=== PATIENT | female | born 1945 | race Caucasian/White ===

== ENCOUNTER 2016-11-07 19:31 | Emergency (ER) | payer MEDICARE ==
[2016-11-07 20:29] LABS: BASOPHIL 0.2 % (0-2); HCT 31.2 % (37.0-47.0); HGB 9.5 g/dl (12.5-16.0); LYMPHOCYTE 17.8 % (15-48); MCH 29.9 pg (25.0-31.0); MCHC 30.4 g/dL (32.0-36.0); MCV 98.1 fL (78.0-100.0); MONOCYTE 9.5 % (0-12); MPV 10.2 fL (6.0-9.5); NEUTROPHIL 70.5 % (41-80); PLT 269 K/uL (150-400); RBC 3.18 M/uL (4.20-5.40); RDW 15.1 % (11.5-14.0)
[2016-11-07 20:43] LABS: ALBUMIN 2.9 g/dL (3.4-4.8); BILIRUBIN - TOTAL 0.2 mg/dL (0.1-1.0); CREATININE 0.7 mg/dL (0.5-1.0); GLOBULIN (CALCULATION) 3.9 g/dL (2.2-4.2); POTASSIUM 4.4 mmol/L (3.5-5.1); TOTAL PROTEIN 6.8 g/dL (6.4-8.3)
[2016-11-07 20:52] LABS: INR 1.2 (0.9-1.2); PROTHROMBIN TIME 14.8 SECONDS (11.7-14.0); PTT 37.6 SECONDS (23.2-31.4)
[2016-11-07 21:47] LABS: BILIRUBIN NEGATIVE (NEGATIVE); BLOOD 3+ Ery/uL (NEGATIVE); CLARITY CLOUDY (CLEAR); COLOR YELLOW (YELLOW); GLUCOSE (U) NORMAL (NORMAL); KETONE (U) NEGATIVE (NEGATIVE); LEUKOCYTES 2+ Leu/uL (NEGATIVE); NITRITE NEGATIVE (NEGATIVE); PROTEIN 1+ mg/dL (NEGATIVE); SPECIFIC GRAVITY 1.025 (1.001-1.030); UROBILINOGEN 0.2 mg/dL (0.2-1.0); pH 5.5 (5.0-9.0)
[2016-11-07 21:52] LABS: BACTERIA 3+; SQUAMOUS EPITHELIAL CELLS RARE; URINARY WBC 20-50
[2016-12-05] MEDS ORDERED: SYNTHROID88 MCG PEG (14:36)
[2016-12-05] MEDS ORDERED: PROAMATINE5 MG PEG (14:36)
[2016-12-05] MEDS ORDERED: PREVACID30 M1 PEG (14:36)
[2016-12-05] MEDS ORDERED: REGLAN5 MG PEG (14:36)
[2016-12-05] MEDS ORDERED: LIPITOR40 M1 PEG (14:37)
[2016-12-05] MEDS ORDERED: ELIQUIS5 MG PEG (14:37)
[2016-12-05] MEDS ORDERED: DIGITEK125 MCG PEG (14:37)
[2016-12-05] MEDS ORDERED: MIRALAX17 GM PEG (14:37)
[2016-12-05] MEDS ORDERED: LASIX20 MG PEG (14:38)
[2016-12-05] MEDS ORDERED: TOPAMAX100 MG PEG (14:38)
[2016-12-05] MEDS ORDERED: LYRICA75 MG PEG (14:38)
[2016-12-05] MEDS ORDERED: PREDNISONE 10MG10 MG PEG (14:38)
[2016-12-05] MEDS ORDERED: CARAFATE1 GM PEG (14:38)
[2016-12-05] MEDS ORDERED: LOPRESSOR25 MG PEG (14:39)
[2016-12-05] MEDS ORDERED: PERCOCET 5/3251 TAB PEG (14:39)
[2016-12-05] MEDS ORDERED: FLORASTOR250 MG PEG (14:39)
== END 2016-11-08 03:18 | disposition other institution (70) ==
LOC: FER 19:31
PROVIDERS: Emergency Medicine
DX: J18.9 Pneumonia, unspecified organism (principal); I50.1 Left ventricular failure, unspecified; I21.4 Non-ST elevation (NSTEMI) myocardial infarction; R82.90 Unspecified abnormal findings in urine; I25.10 Atherosclerotic heart disease of native coronary artery without angina pectoris; I48.91 Unspecified atrial fibrillation; J44.9 Chronic obstructive pulmonary disease, unspecified; Z86.73 Personal history of transient ischemic attack (TIA), and cerebral infarction without residual deficits; Z88.0 Allergy status to penicillin; Z88.1 Allergy status to other antibiotic agents; Z88.8 Allergy status to other drugs, medicaments and biological substances; Z79.01 Long term (current) use of anticoagulants; Z93.0 Tracheostomy status; Z93.1 Gastrostomy status; Z66 Do not resuscitate
CPT/HCPCS: 36415; 36600; 71020; 80053; 81001; 82150; 82803; 83605; 83880; 84484; 85025; 85610; 85730; 87040; 87076; 87088; 87186; 87804; 87899; 93005; 94640; 96372; J1250; J1885; J2543

== ENCOUNTER → 2017-01-06 | Day surgery (SDC) | payer MEDICARE ==
[~2017-01-06] VITALS: Ht 165.1 cm; Wt 71.3 kg
[~2017-01-06] MED LIST: CARAFATE1 GM PEG; DIGITEK125 MCG PEG; ELIQUIS5 MG PEG; FLORASTOR250 MG PEG; LASIX20 MG PEG; LIPITOR40 M1 PEG; LOPRESSOR25 MG PEG; LYRICA75 MG PEG; MIRALAX17 GM PEG; PERCOCET 5/3251 TAB PEG; PREDNISONE 10MG10 MG PEG; PREVACID30 M1 PEG; PROAMATINE5 MG PEG; REGLAN5 MG PEG; SYNTHROID88 MCG PEG; TOPAMAX100 MG PEG
== END | disposition home or self-care (01) ==
LOC: FAS 10:00
DX: R63.3 Feeding difficulties (principal); E03.9 Hypothyroidism, unspecified; G47.30 Sleep apnea, unspecified; J44.9 Chronic obstructive pulmonary disease, unspecified; I48.91 Unspecified atrial fibrillation; I50.9 Heart failure, unspecified; Z88.0 Allergy status to penicillin; Z88.1 Allergy status to other antibiotic agents; Z88.8 Allergy status to other drugs, medicaments and biological substances; Z79.01 Long term (current) use of anticoagulants; Z79.899 Other long term (current) drug therapy
CPT/HCPCS: J1885; J2704; J3010

== ENCOUNTER 2017-01-11 03:30 | Emergency (ER) | payer MEDICARE ==
[2017-01-11 03:53] LABS: BASOPHIL 0.2 % (0-2); EOSINOPHIL 2.2 % (0-7); HCT 33.4 % (37.0-47.0); HGB 9.9 g/dl (12.5-16.0); LYMPHOCYTE 46.2 % (15-48); MCH 28.1 pg (25.0-31.0); MCHC 29.6 g/dL (32.0-36.0); MCV 94.9 fL (78.0-100.0); MPV 10.7 fL (6.0-9.5); NEUTROPHIL 44.4 % (41-80); PLT 334 K/uL (150-400); RBC 3.52 M/uL (4.20-5.40); RDW 14.1 % (11.5-14.0); WBC 20.9 K/uL (4.0-10.5)
[2017-01-11 04:01] LABS: INR 1.28 (0.9-1.2); PROTHROMBIN TIME 15.5 SECONDS (11.7-14.0); PTT 34.3 SECONDS (23.2-31.4)
[2017-01-11 04:03] LABS: D-DIMER 0.45 ug/mLFEU (0.00-0.41)
[2017-01-11 04:09] LABS: LACTIC ACID 2.1 mmol/L (0.5-2.2)
[2017-01-11 04:35] LABS: BILIRUBIN NEGATIVE (NEGATIVE); BLOOD 2+ Ery/uL (NEGATIVE); COLOR YELLOW (YELLOW); GLUCOSE (U) NORMAL (NORMAL); KETONE (U) NEGATIVE (NEGATIVE); LEUKOCYTES 2+ Leu/uL (NEGATIVE); NITRITE POSITIVE (NEGATIVE); PROTEIN TRACE (LOW) mg/dL (NEGATIVE); UROBILINOGEN 0.2 mg/dL (0.2-1.0); pH 6.5 (5.0-9.0)
[2017-01-11 04:36] LABS: CLARITY CLOUDY (CLEAR)
[2017-01-11 04:51] LABS: ALBUMIN 3.2 g/dL (3.4-4.8); BILIRUBIN - TOTAL 0.2 mg/dL (0.1-1.0); CREATININE 0.8 mg/dL (0.5-1.0); GLOBULIN (CALCULATION) 3.6 g/dL (2.2-4.2); POTASSIUM 3.8 mmol/L (3.5-5.1); TOTAL PROTEIN 6.8 g/dL (6.4-8.3)
[2017-01-11 04:52] LABS: CKMB 2.93 ng/mL (0.97-4.94); TROPONIN T 0.099 ng/mL
[2017-01-11 06:22] LABS: BAND 3 % (0-10); EOSINOPHIL(M) 3 % (0-7); LYMPHOCYTE(M) 40 % (15-48); MONOCYTE(M) 5 % (0-12); NEUTROPHILS(M) 45 % (41-80); TOTAL CELL COUNT 100; VARIANT LYMPHOCYTE 4
[2017-01-11 06:23] LABS: PLATELET ESTIMATE NORMAL; PLATELET MORPHOLOGY NORMAL
== END 2017-01-11 09:18 | disposition other institution (70) ==
LOC: FER 03:30
PROVIDERS: Emergency Medicine Emergency Medical Services
DX: J18.9 Pneumonia, unspecified organism (principal); J96.20 Acute and chronic respiratory failure, unspecified whether with hypoxia or hypercapnia; I50.9 Heart failure, unspecified; I48.91 Unspecified atrial fibrillation; J44.9 Chronic obstructive pulmonary disease, unspecified; E11.9 Type 2 diabetes mellitus without complications; R82.90 Unspecified abnormal findings in urine; Z86.14 Personal history of Methicillin resistant Staphylococcus aureus infection; Z98.890 Other specified postprocedural states; Z99.81 Dependence on supplemental oxygen; Z88.0 Allergy status to penicillin; Z88.8 Allergy status to other drugs, medicaments and biological substances; Z87.440 Personal history of urinary (tract) infections
CPT/HCPCS: 31500; 36415; 36600; 71010; 80053; 80162; 81003; 82550; 82553; 82803; 83605; 83880; 84145; 84484; 85379; 85610; 85730; 87040; 87070; 87076; 87088; 87186; 87205; 92950; 93005; 94002; 94640; 94760; 94770; J1170; J1956; J2930; J3475